=== PATIENT | female | born 1995 | race Caucasian/White ===

== ENCOUNTER 2017-11-24 01:20 | Inpatient (IN) ==
[2017-11-24] MEDS ORDERED: SALINE FLUSH 10ml SYRINGE IV PRN (01:48)
[2017-11-24] MEDS ORDERED: MAG-AL + SIM ORAL LIQUID 30ml PO PRN (01:48)
[2017-11-24] MEDS ORDERED: METHYLERGONOVINE 0.2 MG/ML INJECTION IM PRN (01:48)
[2017-11-24] MEDS ORDERED: LIDOCAINE 1% (10mg/ml) 2mL INJ PF SDV ID PRN (01:48)
[2017-11-24] MEDS ORDERED: CARBOPROST 250 MCG/ML INJECTION IM PRN (01:48)
[2017-11-24] MEDS ORDERED: CALCIUM CARBONATE Chewable 500mg TABLET PO PRN (01:48)
[2017-11-24] MEDS ORDERED: ACETAMINOPHEN 500 MG TABLET PO PRN (01:48)
[2017-11-24] MEDS: LR 1,000 ML IV PRN ×2 (02:01→04:36)
[2017-11-24 02:25] VITALS: BMI 27.9
[2017-11-24] MEDS: D5LR 1,000 ML IV SCH ×2 (03:08→17:41)
[2017-11-24] MEDS ORDERED: DiphenhydrAMINE 50 MG/ML INJECTION IVP PRN (05:18)
[2017-11-24] MEDS ORDERED: ONDANSETRON 4 MG/2 ML INJECTION IVP PRN (05:18)
[2017-11-24] MEDS ORDERED: NALOXONE 0.4 MG/ML INJECTION IVP PRN (05:18)
[2017-11-24] MEDS ORDERED: ROPIVACAINE 1% 10MG/ML INJ 200 MG, SUFentanil 50 MCG in NS 100 ML EPI PRN (05:18)
--- NOTE | 2017-11-24 05:19 | Anesthesia Preoperative Report ---
Anesthesia Epidural/Spinal Rec - Date and Time Date: 11/24/17 Procedure: Labor Epidural Plan: Epidural - Vital Signs Vital Signs: Temperature 98.2 F 11/24/17 01:55 /Para: P:0 Heart Rate: 140 - Medictaions & Allergies Inpatient Medications: Current Medications Acetaminophen (Tylenol) 500 - 1,000 mg PO Q4H PRN PRN Reason: Pain Al Hydroxide/Mg Hydroxide (Maalox Plus) 30 ml PO Q3H PRN PRN Reason: Indigestion Calcium Carbonate (Tums) 500 - 1,000 mg PO Q2H PRN PRN Reason: Indigestion Carboprost Tromethamine (Hemabate) 250 mcg IM O PRN PRN Reason: .Downtime Dextrose/Lactated Ringer's (Dextrose 5%-Lactated Ringers) 1,000 mls @ 125 mls/ hr IV .Q8H CALEB Last Admin: 11/24/17 03:08 Dose: 125 mls/hr Lactated Ringer's (Lactated Ringers) 1,000 mls @ 999 mls/hr IV .Q1H1M PRN Last Admin: 11/24/17 04:36 Dose: 999 mls/hr Lidocaine HCl (Xylocaine-Mpf 1% Vial) 0.2 mg ID O PRN PRN Reason: IV Start Methylergonovine Maleate (Methergine) 0.2 mg IM O PRN Misoprostol (Cytotec) 800 mcg AL ONCE PRN Sodium Chloride (Iv Flush) 10 - 80 ml IV PRN PRN PRN Reason: Flushing Allergies/Adverse Reactions: Allergies Allergy/AdvReac Type Severity Reaction Status Date / Time No Known Allergies Allergy Verified 11/15/17 13:26 - Home Medications Home Medications: Home Medications Medication Instructions Recorded Confirmed Type Iron 11/15/17 History Vitamins 11/15/17 History - Medical History Neuro/Musculoskeletal: Reports: Headaches (Pt reports she had headache every few days before she got .) Other History: Reports: Now - Surgical History Anesthesia Reactions: None Hx Family Anesthesia Reaction: No History of Motion Sickness: No - Social History Smoking Status: Current every day smoker Second Hand Exposure: No Substance Use Type: does not use Alcohol Intake Frequency: does not drink Hx Chewing Tobacco Use: No - Pertinent Findings Lab Data: CBC and BMP 11/24/17 01:58 - Physical Exam Respiratory Exam: lungs clear, bilateral breath sounds equal Cardiovascular Exam: regular rate and rhythm - Airway Assessment Mallampati Score: I TMD: 3 Fingerbreadths Neck Extension: good Overall Assessment: no airway concerns - ASA ASA Score: 2 - Discussion Discussion: Discussed risks/options/alternatives of anesthesia and questions answered. Patient consents. Nursing pain assessment noted. Anesthesia Discussion: family member Attestation Statement: Prior to the delivery of any anesthetic medication, I examined the patient, developed the plan, obtained the patient's consent and discussed the risk and benefits of the procedure with the patient/guardian.
[2017-11-24] MEDS ORDERED: MEASLES-MUMPS-RUBELLA VACCINE 0.5ml INJECTION SQ ONE (11:13)
[2017-11-24] MEDS ORDERED: DiphenhydrAMINE 25 MG CAPSULE PO PRN (11:13)
[2017-11-24] MEDS ORDERED: HYDROCORTISONE 2.5% CREAM 30gm RECTALLY PRN (11:13)
[2017-11-24] MEDS ORDERED: OXYTOCIN DRIP 30 UNIT/500 ML ML IV SCH (11:15)
[2017-11-24] MEDS: HYDROCODONE/APAP 5mg/325mg TABLET PO PRN ×2 (14:29→21:00)
[2017-11-24] MEDS: IBUPROFEN 800 MG TABLET PO PRN (14:30)
--- NOTE | 2017-11-24 15:18 | Labor and Delivery Note ---
DATE 11/24/2017 Jennie is a 21-year-old 1 at 39 weeks 4 days gestational age who presented to [facility] in spontaneous labor. She received an epidural. Her membranes were ruptured artificially initially returning only a small amount of amniotic fluid. She progressed on to complete dilation and pushed for approximately an hour. During pushing light meconium stained fluid was noted. She delivered in the MICKEY position. There was a loose nuchal cord that was delivered through. Baby was initially vigorous at delivery so she was placed on mom's abdomen and the cord clamping was delayed for more than two minutes. Baby was then taken to the warmer for further resuscitation. The placenta delivered spontaneously. There was a right first-degree perineal laceration that was repaired with 2-0 Vicryl. A [id number]-nkxal of 2-0 Vicryl was placed at the left hymenal ring for another small laceration. 2-0 chromic was then used to repair a right labial laceration. Baby is a viable female , Apgars 7/9, weight 2900 grams, name "Lillian". At the time of this dictation, baby is in special care nursery on CPAP. Mom tolerated the delivery well. RUBAD
[2017-11-25] MEDS: IBUPROFEN 800 MG TABLET PO PRN ×3 (04:22→20:31)
--- NOTE | 2017-11-25 10:32 | Progress Note ---
OB PP Progress Note Free Text - Date Date: 11/25/17 - Progress Note Progress Note: PPD#1 vss af no c/o cont current care
[2017-11-25] MEDS: HYDROCODONE/APAP 5mg/325mg TABLET PO PRN ×2 (12:16→20:31)
[2017-11-25] MEDS: DOCUSATE CALCIUM 240 MG CAPSULE PO SCH (12:31)
[2017-11-26] MEDS: HYDROCODONE/APAP 5mg/325mg TABLET PO PRN (07:35)
[2017-11-26] MEDS: IBUPROFEN 800 MG TABLET PO PRN (07:35)
[2017-11-26] MEDS: DOCUSATE CALCIUM 240 MG CAPSULE PO SCH (09:44)
[2017-11-26 10:03] VITALS: BP 127/75; PULSE 80; RESP 14; TEMP 97.8; O2SAT 100
--- NOTE | 2017-11-26 11:56 | Progress Note ---
OB PP Progress Note Free Text - Date Date: 11/26/17 - Progress Note Progress Note: vss af doing well dc instructions reviewed q&a fu 5-6 wks q&a-krb
== END 2017-11-26 15:15 | disposition home or self-care (01) | DRG 775 ==
LOC: MC 01:20
PROVIDERS: ADMIT Obstetrics & Gynecology; ATTEND Obstetrics & Gynecology